=== PATIENT | female | born 2000 | race Caucasian/White ===

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

== ENCOUNTER → 2021-02-13 08:54 | Outpatient (CLI) | payer OTHER, SELFPAY ==
--- NOTE | 2021-02-13 08:59 | US_ITS ---
STUDY: THYROID ULTRASOUND REASON FOR EXAM: Female, 20 years old. GOITER TECHNIQUE: Ultrasound evaluation of the thyroid was performed with real-time and static pitt-scale imaging. COMPARISON: None. FINDINGS: RIGHT LOBE: The right lobe of the thyroid gland measures 5.4 x 1.7 x 2.0 cm. There is a heterogeneous echotexture. No definitive discrete nodule although detection is limited due to significant gland heterogeneity. LEFT LOBE: The left lobe of the thyroid gland measures 5.0 x 2.1 x 2.0 cm. There is a homogeneous echotexture. No definitive discrete nodule although detection is limited due to significant gland heterogeneity. ISTHMUS: The isthmus measures 8 mm. The regional lymph nodes are normal. US/Thyroid IMPRESSION: 1. Significantly heterogeneous, enlarged thyroid gland with increased vascularity suggesting thyroiditis. No discrete nodule. Electronically Signed: Wayne Ta MD ([place]) at 20:07 EDT , Service support ,
== END ==
PROVIDERS: PCP Physician Assistant; Referring Provider Internal Medicine Endocrinology, Diabetes & Metabolism; Visit Provider Internal Medicine Endocrinology, Diabetes & Metabolism
DX: E03.9 Hypothyroidism, unspecified (principal); E04.9 Nontoxic goiter, unspecified; E06.3 Autoimmune thyroiditis; E55.9 Vitamin D deficiency, unspecified
CPT/HCPCS: 76536